=== PATIENT | male | born 1975 | race Caucasian/White ===

== ENCOUNTER 2018-03-12 22:04 | Outpatient (REF) | payer BC, SELFPAY ==
[2018-03-12 22:43] LABS: Cholesterol 204 mg/dL (50-200); HDL Cholesterol 24 mg/dL (40-60); LDL CHOLESTEROL 133 mg/dL (<100); TSH (W/Ref FT4) 16.86 uIU/mL (0.358-3.74); Triglyceride 375 mg/dL (30-150)
[2018-03-12 22:51] LABS: Hemoglobin A1C 5.9 % (4.5-6.2)
[2018-03-12 23:09] LABS: FREE T4 1.17 ng/dL (0.76-1.46)
[2018-03-14 10:07] LABS: Thyroglobulin Antibody 83 U/mL (<61); Thyroperoxidase Antibody >1300 U/mL (<61)
== END 2018-03-12 22:24 ==
LOC: NCHCN 22:04
PROVIDERS: Visit Provider Nurse Practitioner Family
DX: E03.9 Hypothyroidism, unspecified (principal); Z13.1 Encounter for screening for diabetes mellitus; Z13.220 Encounter for screening for lipoid disorders
CPT/HCPCS: 80061; 83721; 83036; 84439; 84443; 86376; 86800

== ENCOUNTER 2021-01-25 10:12 | Outpatient (REF) | payer BC, SELFPAY ==
[2021-01-25 16:37] LABS: HGB 13.7 g/dL (13.5-17.5); MCH 29.5 pg (27.0-33.0); MCHC 32.6 % (32.0-36.0); MCV 90.5 fL (80-95); MPV 10.5 fL (8.0-11.0); Platelet Count 240 10^3/uL (130-400); RBC 4.64 10^6/uL (4.36-5.78); RDW 11.9 % (11.8-14.1); RDW-SD 39.3 fL; WBC 6.22 10^3/uL (4.4-10.8)
[2021-01-25 17:07] LABS: Hemoglobin A1C 5.6 % (<5.7)
[2021-01-25 17:10] LABS: Anion Gap 6.7 mmol/L (3-11); BUN 12 mg/dL (7-18); CO2 30.3 mmol/L (21.0-32.0); CREATININE 1.2 mg/dL (0.70-1.30); Calcium 8.7 mg/dL (8.5-10.1); Calculated LDL 151 mg/dL (<100); Chloride 103 mmol/L (98-107); Cholesterol 205 mg/dL (<200); Glucose 98 mg/dL (74-106); HDL Cholesterol 29 mg/dL (40-60); Potassium 4.1 mmol/L (3.5-5.1); Sodium 140 mmol/L (136-145); Triglyceride 125 mg/dL (<150)
[2021-01-25 17:40] LABS: FREE T4 0.85 ng/dL (0.76-1.46)
== END 2021-01-25 10:13 | disposition home or self-care (01) ==
LOC: NCHCN 10:12
PROVIDERS: Visit Provider Nurse Practitioner Family
DX: E03.9 Hypothyroidism, unspecified (principal); R73.03 Prediabetes; E78.5 Hyperlipidemia, unspecified; Z00.00 Encounter for general adult medical examination without abnormal findings
CPT/HCPCS: 80048; 80061; 85027; 83036; 84439; 84443

== ENCOUNTER 2022-01-31 10:49 | Outpatient (REF) | payer BC, SELFPAY ==
[2022-01-31 15:37] LABS: ALT 36 U/L (16-63); AST 26 U/L (15-37); Alkaline Phosphatase 77 U/L (46-116); Anion Gap 5.5 mmol/L (3-11); BUN 13 mg/dL (7-18); Bilirubin, Total 0.6 mg/dL (0.2-1.0); CO2 30.5 mmol/L (21.0-32.0); CREATININE 1.2 mg/dL (0.70-1.30); Calcium 8.9 mg/dL (8.5-10.1); Chloride 102 mmol/L (98-107); Estimated GFR 75.53 (mL/min/1.73m2); Glucose 96 mg/dL (74-106); Potassium 3.8 mmol/L (3.5-5.1); Sodium 138 mmol/L (136-145); TSH (W/Ref FT4) 19.64 uIU/mL (0.36-3.74); Total Protein 7.7 g/dL (6.4-8.2)
== END 2022-01-31 10:50 | disposition home or self-care (01) ==
LOC: NCHCN 10:49
PROVIDERS: Visit Provider Nurse Practitioner Family
DX: Z00.00 Encounter for general adult medical examination without abnormal findings (principal); E03.9 Hypothyroidism, unspecified; R73.03 Prediabetes
CPT/HCPCS: 80053; 84439; 84443

== ENCOUNTER 2023-07-13 08:38 | Outpatient (REF) | payer BC, SELFPAY ==
[2023-07-13 16:01] LABS: Prothrombin Time 35.9 sec (9.1-11.1)
== END 2023-07-13 08:39 | disposition home or self-care (01) ==
LOC: NCHCN 08:38
PROVIDERS: Visit Provider Nurse Practitioner Family
DX: Z79.01 Long term (current) use of anticoagulants (principal)
CPT/HCPCS: 85610

== ENCOUNTER 2023-10-19 21:19 | Outpatient (REF) | payer BC, SELFPAY ==
[2023-10-19 22:06] LABS: Calculated LDL 47 mg/dL (<100); Cholesterol 98 mg/dL (<200); HDL Cholesterol 40 mg/dL (40-60); TSH 4.79 uIU/Ml (0.36-3.74); Triglyceride 55 mg/dL (<150)
[2023-10-19 22:10] LABS: Hemoglobin A1C 5.8 % (<5.7)
== END 2023-10-19 21:20 | disposition home or self-care (01) ==
LOC: NCHCN 21:19
PROVIDERS: Visit Provider Nurse Practitioner Family
DX: R73.03 Prediabetes (principal); E78.5 Hyperlipidemia, unspecified; E03.9 Hypothyroidism, unspecified
CPT/HCPCS: 80061; 83036; 84443

== ENCOUNTER 2024-01-02 12:36 | Outpatient (REF) | payer BC, SELFPAY ==
[2024-01-02 15:11] LABS: TSH 0.53 uIU/mL (0.36-3.74)
[2024-01-02 18:03] LABS: Hemoglobin A1C 5.6 % (<5.7)
[2024-01-03 10:06] LABS: HIV-1/2 Ag & Ab Screen Negative (Negative)
[2024-01-03 10:08] LABS: Hepatitis C Ab w Rflx HCV PCR Negative (Negative)
[2024-01-03 10:43] LABS: Syphilis Serology (RPR) Negative (Negative)
[2024-01-03 13:37] LABS: Chlamydia Result Negative (Negative); GC Result Negative (Negative)
== END 2024-01-02 12:37 | disposition home or self-care (01) ==
LOC: NCHCN 12:36
PROVIDERS: PCP Nurse Practitioner Family; Visit Provider Nurse Practitioner Family
DX: E03.9 Hypothyroidism, unspecified (principal); R73.03 Prediabetes; A64 Unspecified sexually transmitted disease; Z11.4 Encounter for screening for human immunodeficiency virus [HIV]; Z11.59 Encounter for screening for other viral diseases
CPT/HCPCS: 86803; 87389; 87491; 87591; 83036; 84443; 86592

== ENCOUNTER 2024-02-01 13:05 | Outpatient (REF) | payer BC, SELFPAY ==
[2024-02-01 22:00] LABS: Calculated LDL 76 mg/dL (<100); Cholesterol 138 mg/dL (<200); HDL Cholesterol 43 mg/dL (40-60); Triglyceride 99 mg/dL (<150)
== END 2024-02-01 13:06 | disposition home or self-care (01) ==
LOC: NCHCN 13:05
PROVIDERS: PCP Nurse Practitioner Family; Visit Provider Nurse Practitioner Family
DX: I25.10 Atherosclerotic heart disease of native coronary artery without angina pectoris (principal)
CPT/HCPCS: 80061

== ENCOUNTER 2024-03-26 10:25 | Outpatient (REF) | payer BC, SELFPAY ==
[2024-03-26 14:56] LABS: Calculated LDL 31 mg/dL (<100); Cholesterol 108 mg/dL (<200); HDL Cholesterol 36 mg/dL (40-60); LDL CHOLESTEROL 63 mg/dL (<100); Triglyceride 205 mg/dL (<150)
== END 2024-03-26 10:26 | disposition home or self-care (01) ==
LOC: NCHCN 10:25
PROVIDERS: PCP Nurse Practitioner Family; Visit Provider Nurse Practitioner Family
DX: E78.5 Hyperlipidemia, unspecified (principal)
CPT/HCPCS: 80061; 83721

== ENCOUNTER 2024-06-27 08:51 | Outpatient (REF) | payer BC, SELFPAY ==
[2024-06-27 15:39] LABS: Hemoglobin A1C 5.6 % (<5.7)
[2024-06-27 15:41] LABS: Calculated LDL 49 mg/dL (<100); Cholesterol 97 mg/dL (<200); HDL Cholesterol 32 mg/dL (>or=40); TSH 3.54 uIU/mL (0.36-3.74); Triglyceride 83 mg/dL (<150)
== END 2024-06-27 08:52 | disposition home or self-care (01) ==
LOC: NCHCN 08:51
PROVIDERS: PCP Nurse Practitioner Family; Visit Provider Nurse Practitioner Family
DX: R73.03 Prediabetes (principal); E03.9 Hypothyroidism, unspecified; I25.10 Atherosclerotic heart disease of native coronary artery without angina pectoris
CPT/HCPCS: 80061; 83036; 84443

== ENCOUNTER 2024-12-30 13:50 | Outpatient (REF) | payer BC, SELFPAY ==
[2024-12-30 15:09] LABS: Hemoglobin A1C 5.7 % (<5.7)
[2024-12-31 01:18] LABS: HIV-1/2 Ag & Ab Screen Negative (Negative)
[2024-12-31 01:30] LABS: Hepatitis C Ab w Rflx HCV PCR Negative (Negative)
[2024-12-31 10:46] LABS: Syphilis Serology (RPR) Negative (Negative)
[2024-12-31 11:17] LABS: Chlamydia Result Negative (Negative); GC Result Negative (Negative)
== END 2024-12-30 13:51 | disposition home or self-care (01) ==
LOC: NCHCN 13:50
PROVIDERS: PCP Nurse Practitioner Family; Visit Provider Nurse Practitioner Family
DX: Z11.3 Encounter for screening for infections with a predominantly sexual mode of transmission (principal); R73.03 Prediabetes
CPT/HCPCS: 86803; 87389; 87491; 87591; 83036; 86592